=== PATIENT | male | born 1960 | race Caucasian/White ===

== ENCOUNTER → 2021-01-04 | Outpatient (REF) | payer MEDICARE ==
[2021-01-08 17:10] LABS: AMPHETAMINE, URINE GC/MS >5000 ng/mL (Cutoff=500); CREATININE, URINE 223.7 mg/dL (20.0-300.0); METHAMPHETAMINE, URINE Negative (Cutoff=500); OPIATES, URINE Negative ng/mL (Cutoff=300); OXYCODONE URINE Positive (.); OXYCODONE, URINE CONFIRM 4266 ng/mL (Cutoff=100); OXYCODONE/OXYMORPH, URINE Positive (Cutoff=100); OXYMORPHONE, URINE Positive (.); OXYMORPHONE, URINE CONFIRM 3753 ng/mL (Cutoff=100)
== END ==
LOC: M SFHCPLAZ 13:16
PROVIDERS: ATTEND Family Medicine
DX: Z51.81 Encounter for therapeutic drug level monitoring (principal); Z79.899 Other long term (current) drug therapy
CPT/HCPCS: 80307; G0463

== ENCOUNTER → 2021-02-07 | Outpatient (CLI) | payer MEDICARE ==
[2021-02-07 15:54] LABS: BLOOD UREA NITROGEN 20 MG/DL (7-18); CALCIUM LEVEL 9.3 MG/DL (8.8-10.2); CARBON DIOXIDE LEVEL 29 MEQ/L (21-32); CHLORIDE LEVEL 106 MEQ/L (98-107); CREATININE FOR GFR 1.03 MG/DL (0.70-1.30); GLOMERULAR FILTRATION RATE > 60.0 (>49); GLUCOSE, FASTING 103 MG/DL (70-100); POTASSIUM SERUM 4.5 MEQ/L (3.5-5.1); SODIUM LEVEL 141 MEQ/L (136-145)
[2021-02-07 16:08] LABS: HEMOGLOBIN A1c 6.4 %
== END ==
LOC: M PLALAB 11:47
PROVIDERS: ATTEND Family Medicine
DX: I10 Essential (primary) hypertension (principal); Z13.1 Encounter for screening for diabetes mellitus; Z79.899 Other long term (current) drug therapy

== ENCOUNTER → 2021-07-28 | Outpatient (REF) | payer MEDICARE | LOC: M SFHCPLAZ 11:57 | PROVIDERS: ATTEND Family Medicine | DX: N40.0 Benign prostatic hyperplasia without lower urinary tract symptoms (principal) ==

== ENCOUNTER → 2021-07-28 | Outpatient (REF) | payer MEDICARE ==
[2021-07-28 12:19] LABS: BASO # 0.1 10^3/uL (0.0-0.2); BASO % 0.8 % (0.0-1.0); EOS # 0.1 10^3/uL (0.0-0.5); EOS % 1.1 % (0.0-3.0); HEMATOCRIT 43.1 % (42.0-52.0); HEMOGLOBIN 14.7 g/dl (13.5-17.5); LYMPH # 2.8 10^3/uL (1.5-5.0); LYMPH % 34.6 % (24.0-44.0); MEAN CORPUSCULAR HEMOGLOBIN 29.9 pg (27.0-33.0); MEAN CORPUSCULAR HGB CONC 34.1 g/dl (32.0-36.5); MEAN CORPUSCULAR VOLUME 87.8 fl (80.0-96.0); MONO # 0.4 10^3/uL (0.0-0.8); MONO % 5.5 % (2.0-8.0); NEUTROPHILS # 4.6 10^3/uL (1.5-8.5); NEUTROPHILS % 57.6 % (36.0-66.0); PLATELET COUNT, AUTOMATED 240 10^3/uL (150-450); RED BLOOD COUNT 4.91 10^6/uL (4.30-6.10)
[2021-07-28 12:38] LABS: APPEARANCE, URINE CLEAR (CLEAR); BACTERIA, URINE AUTO NEGATIVE (NEGATIVE); BILIRUBIN, URINE AUTO NEGATIVE (NEGATIVE); BLOOD, URINE BLOOD NEGATIVE (NEGATIVE); COLOR, URINE YELLOW (YELLOW); GLUCOSE, URINE (UA) AUTO 1+ mg/dL (NEGATIVE); KETONE, URINE AUTO NEGATIVE (NEGATIVE); LEUKOCYTE ESTERASE, URINE AUTO NEGATIVE (NEGATIVE); MUCUS, URINE SMALL (NEGATIVE); NITRITE, URINE AUTO NEGATIVE (NEGATIVE); PROTEIN, URINE AUTO NEGATIVE (NEGATIVE); RBC, URINE AUTO 1 /HPF (0-3); SQUAMOUS EPITHELIAL CELL UR AU 0 /HPF (0-6); UROBILINOGEN, URINE AUTO 0.2 mg/dL (0.0-2.0); WBC, URINE AUTO 1 /HPF (0-3)
[2021-07-28 12:40] LABS: DRVV SCREEN 37.7 SEC
[2021-07-28 12:53] LABS: ERYTHROCYTE SEDIMENTATION RATE 12 mm/hr (0-20)
[2021-07-28 12:56] LABS: C REACTIVE PROTEIN QUANTITATIV 0.5 MG/DL (0.00-0.30); MAGNESIUM LEVEL 2.2 MG/DL (1.8-2.4); PHOSPHORUS LEVEL 3.8 MG/DL (2.5-4.9); THYROID STIMULATING HORMONE 2.72 uIU/ML (0.358-3.740)
[2021-07-28 12:58] LABS: TOTAL 25(OH) VITAMIN D 25.1 NG/ML (30.0-100.0)
== END ==
LOC: M SFHCRHEU 10:30
PROVIDERS: ATTEND Internal Medicine
DX: R76.8 Other specified abnormal immunological findings in serum (principal); M79.10 Myalgia, unspecified site; M25.40 Effusion, unspecified joint; Z79.899 Other long term (current) drug therapy

== ENCOUNTER → 2021-11-18 | Outpatient (CLI) | payer MEDICARE | LOC: M WUC 08:57 | PROVIDERS: ATTEND Internal Medicine | DX: M19.031 Primary osteoarthritis, right wrist (principal); M19.032 Primary osteoarthritis, left wrist; M17.11 Unilateral primary osteoarthritis, right knee; M17.12 Unilateral primary osteoarthritis, left knee; M19.041 Primary osteoarthritis, right hand; M19.042 Primary osteoarthritis, left hand; M19.071 Primary osteoarthritis, right ankle and foot; M19.072 Primary osteoarthritis, left ankle and foot; M25.40 Effusion, unspecified joint ==

== ENCOUNTER → 2022-02-09 | Outpatient (CLI) | payer MEDICARE | LOC: M PLARAD 08:56 | PROVIDERS: ATTEND Internal Medicine | DX: M79.89 Other specified soft tissue disorders (principal) ==

== ENCOUNTER → 2022-03-16 | Outpatient (CLI) | payer MEDICARE | LOC: M SOG 08:35 | PROVIDERS: ATTEND Orthopaedic Surgery Adult Reconstructive Orthopaedic Surgery | DX: M85.862 Other specified disorders of bone density and structure, left lower leg (principal); M25.761 Osteophyte, right knee ==

== ENCOUNTER → 2022-05-08 | Outpatient (CLI) | payer MEDICARE ==
[~2022-05-08] MED LIST: AMPHET/DEXTR PO; B-12100010 PO; IBUP80TA PO; LISI10TA22 PO; OXYC10TA12 PO; PRAV10TA3 PO; PRAV10TA4 PO; VITA1CAP25 PO
== END ==
LOC: M LABSMTC 10:22
PROVIDERS: ATTEND Anesthesiology
DX: Z01.812 Encounter for preprocedural laboratory examination (principal); Z11.52 Encounter for screening for COVID-19

== ENCOUNTER 2022-05-10 06:06 | Day surgery (SDC) | payer MEDICARE ==
[~2022-05-10] VITALS: Ht 185.4 cm; Wt 118.4 kg
[~2022-05-10 06:06] MED LIST changes: +ceFAZolin SOD 2 GM in IV 1 EA IV ONE
[2022-05-10] MEDS ORDERED: LR 1,000 ML IV SCH ×2 (06:50→09:45)
[2022-05-10] MEDS ORDERED: ONDANSETRON 4MG 2ML VIAL As Ordered ONE (06:51)
[2022-05-10] MEDS ORDERED: LIDOCAINE 2% 100MG/5ML SDV (FOR ANES.) As Ordered ONE (06:51)
[2022-05-10] MEDS ORDERED: propofoL 200 MG/20 ML VIAL As Ordered ONE (06:51)
[2022-05-10] MEDS ORDERED: fentaNYL 100 MCG/2 ML INJECTION As Ordered ONE (06:58)
[2022-05-10] MEDS ORDERED: MIDAZOLAM INJ 2MG/2ML VIAL As Ordered ONE (06:58)
[2022-05-10] MEDS ORDERED: LIDOCAINE 1% MDV 20ML VIAL As Ordered ONE (07:10)
[2022-05-10] MEDS ORDERED: BUPIVACAINE HCL 0.5% 30ML VIAL As Ordered ONE (07:10)
[2022-05-10] MEDS ORDERED: ACETAMINOPHEN 1000MG 100ML IV BAG As Ordered ONE (07:46)
[2022-05-10] MEDS ORDERED: KETOROLAC 60MG 2ML VIAL As Ordered ONE (09:17)
[2022-05-10] MEDS ORDERED: OXYC1TAB23 PO (09:39)
[2022-05-10] MEDS ORDERED: oxyCODONE 5MG TAB PO PRN (09:45)
[2022-05-10] MEDS ORDERED: fentaNYL 100 MCG/2 ML INJECTION IV PRN (09:45)
[2022-05-10] MEDS ORDERED: MORPHINE 2 MG/ML 1ML VIAL IV PRN (09:45)
[2022-05-10] MEDS ORDERED: ONDANSETRON 4MG 2ML VIAL IV PRN (09:45)
[2022-05-10 11:20] VITALS: BP 130/60
== END 2022-05-10 11:23 | disposition home or self-care (01) ==
LOC: M SDC 06:06
PROVIDERS: ATTEND Podiatrist Foot & Ankle Surgery
DX: M21.612 Bunion of left foot (principal); M20.42 Other hammer toe(s) (acquired), left foot; I10 Essential (primary) hypertension; E78.5 Hyperlipidemia, unspecified; Z87.891 Personal history of nicotine dependence; F43.10 Post-traumatic stress disorder, unspecified; N40.0 Benign prostatic hyperplasia without lower urinary tract symptoms; Z79.899 Other long term (current) drug therapy
CPT/HCPCS: 28285; 28299; 28308; 76000; 88300; C1713; J1100; J2405

== ENCOUNTER → 2022-07-25 | Outpatient (CLI) | payer MEDICARE ==
[~2022-07-25] MED LIST changes: +OXYC1TAB23 PO; -ceFAZolin SOD 2 GM in IV 1 EA IV ONE
== END ==
LOC: M RAD 10:22
PROVIDERS: ATTEND Physician Assistant
DX: Z87.891 Personal history of nicotine dependence (principal)

== ENCOUNTER → 2022-10-05 | Outpatient (CLI) | payer MEDICARE | LOC: M SOG 09:35 | PROVIDERS: ATTEND Orthopaedic Surgery | DX: M17.0 Bilateral primary osteoarthritis of knee (principal) ==

== ENCOUNTER → 2023-01-02 | Outpatient (CLI) | payer MEDICARE ==
[2023-01-02 11:01] LABS: BASO # 0.1 10^3/uL (0.0-0.2); BASO % 0.9 % (0.0-1.0); EOS # 0.1 10^3/uL (0.0-0.5); EOS % 1.6 % (0.0-3.0); HEMATOCRIT 43.7 % (42.0-52.0); HEMOGLOBIN 14.5 g/dl (13.5-17.5); LYMPH # 2.8 10^3/uL (1.5-5.0); LYMPH % 36.7 % (24.0-44.0); MEAN CORPUSCULAR HEMOGLOBIN 30.5 pg (27.0-33.0); MEAN CORPUSCULAR HGB CONC 33.2 g/dl (32.0-36.5); MEAN CORPUSCULAR VOLUME 91.8 fl (80.0-96.0); MONO # 0.5 10^3/uL (0.0-0.8); MONO % 5.9 % (2.0-8.0); NEUTROPHILS # 4.1 10^3/uL (1.5-8.5); NEUTROPHILS % 54.1 % (36.0-66.0); PLATELET COUNT, AUTOMATED 239 10^3/uL (150-450); RED BLOOD COUNT 4.76 10^6/uL (4.30-6.10); WHITE BLOOD COUNT 7.6 10^3/uL (4.0-10.0)
[2023-01-02 11:30] LABS: HEMOGLOBIN A1c 5.8 % (4.0-6.0)
[2023-01-02 11:32] LABS: ALBUMIN 3.9 G/DL (3.2-5.2); ALKALINE PHOSPHATASE 110 U/L (46-116); ALT/SGPT 17 U/L (7.0-40); AST/SGOT 9 U/L (<34); BILIRUBIN,TOTAL 0.8 MG/DL (0.3-1.2); BLOOD UREA NITROGEN 16 MG/DL (9-23); CALCIUM LEVEL 9.3 MG/DL (8.3-10.6); CARBON DIOXIDE LEVEL 31 MMOL/L (20-31); CHLORIDE LEVEL 102 MMOL/L (98-107); CHOLESTEROL LEVEL 261 MG/DL (<200); CHOLESTEROL RISK RATIO 5.76 (<5); CREATININE FOR GFR 1.14 MG/DL (0.70-1.30); GLOMERULAR FILTRATION RATE > 60.0 (>49); GLUCOSE, FASTING 109 MG/DL (74-106); HDL CHOLESTEROL 45.3 MG/DL (>40); LDL CHOLESTEROL 187.1 MG/DL (<100); NON-HDL-C 215.7 MG/DL; POTASSIUM SERUM 4.2 MMOL/L (3.5-5.1); SODIUM LEVEL 140 MMOL/L (136-145); TOTAL PROTEIN 6.8 G/DL (5.7-8.2); TRIGLYCERIDES LEVEL 143 MG/DL (<150); VITAMIN B12 LEVEL 650 PG/ML (211-911)
== END ==
LOC: M WUC 08:15
PROVIDERS: ATTEND Physician Assistant
DX: I10 Essential (primary) hypertension (principal); E53.8 Deficiency of other specified B group vitamins; E78.2 Mixed hyperlipidemia; R73.03 Prediabetes; N40.0 Benign prostatic hyperplasia without lower urinary tract symptoms; Z13.21 Encounter for screening for nutritional disorder
CPT/HCPCS: 36415; 80053; 80061; 82306; 82607; 83036; 85025; G0103

== ENCOUNTER → 2023-02-07 | Outpatient (CLI) | payer MEDICARE | LOC: M SOG 07:55 | PROVIDERS: ATTEND Orthopaedic Surgery | DX: M25.561 Pain in right knee (principal); M25.562 Pain in left knee ==

== ENCOUNTER → 2023-05-02 | Outpatient (CLI) | payer MEDICARE ==
[2023-05-02 11:49] LABS: BASO # 0.1 10^3/uL (0.0-0.2); BASO % 0.7 % (0.0-1.0); EOS # 0.1 10^3/uL (0.0-0.5); EOS % 1.4 % (0.0-3.0); HEMATOCRIT 44.9 % (42.0-52.0); HEMOGLOBIN 15.3 g/dl (13.5-17.5); LYMPH # 2.8 10^3/uL (1.5-5.0); LYMPH % 32.9 % (24.0-44.0); MEAN CORPUSCULAR HEMOGLOBIN 30.5 pg (27.0-33.0); MEAN CORPUSCULAR HGB CONC 34.1 g/dl (32.0-36.5); MEAN CORPUSCULAR VOLUME 89.6 fl (80.0-96.0); MONO # 0.4 10^3/uL (0.0-0.8); MONO % 4.7 % (2.0-8.0); NEUTROPHILS # 5.1 10^3/uL (1.5-8.5); NEUTROPHILS % 59.5 % (36.0-66.0); PLATELET COUNT, AUTOMATED 230 10^3/uL (150-450); RED BLOOD COUNT 5.01 10^6/uL (4.30-6.10); WHITE BLOOD COUNT 8.5 10^3/uL (4.0-10.0)
[2023-05-02 12:32] LABS: ALBUMIN 3.9 G/DL (3.2-5.2); ALKALINE PHOSPHATASE 102 U/L (46-116); ALT/SGPT 16 U/L (7.0-40); AST/SGOT < 8 U/L (<34); BILIRUBIN,TOTAL 0.6 MG/DL (0.3-1.2); BLOOD UREA NITROGEN 16 MG/DL (9-23); CALCIUM LEVEL 9.2 MG/DL (8.3-10.6); CARBON DIOXIDE LEVEL 28 MMOL/L (20-31); CHLORIDE LEVEL 102 MMOL/L (98-107); CREATININE FOR GFR 1.07 MG/DL (0.70-1.30); GLOMERULAR FILTRATION RATE > 60.0 (>49); GLUCOSE, FASTING 143 MG/DL (74-106); POTASSIUM SERUM 4.4 MMOL/L (3.5-5.1); PSA SCREENING 5.49 NG/ML (< 4.00); SODIUM LEVEL 139 MMOL/L (136-145); TOTAL PROTEIN 6.5 G/DL (5.7-8.2)
== END ==
LOC: M WUC 08:27
PROVIDERS: ATTEND Physician Assistant
DX: N40.0 Benign prostatic hyperplasia without lower urinary tract symptoms (principal); I10 Essential (primary) hypertension; R73.03 Prediabetes; Z12.5 Encounter for screening for malignant neoplasm of prostate
CPT/HCPCS: 36415; 80053; 83036; 85025; G0103

== ENCOUNTER → 2023-05-29 | Outpatient (CLI) | payer MEDICARE | LOC: M SOG 07:52 | PROVIDERS: ATTEND Orthopaedic Surgery | DX: M17.0 Bilateral primary osteoarthritis of knee (principal) ==

== ENCOUNTER → 2023-07-30 | Outpatient (CLI) | payer MEDICARE | LOC: M RAD 10:55 | PROVIDERS: ATTEND Physician Assistant | DX: Z12.2 Encounter for screening for malignant neoplasm of respiratory organs (principal); F17.211 Nicotine dependence, cigarettes, in remission ==

== ENCOUNTER → 2023-09-25 | Outpatient (CLI) | payer MEDICARE ==
[2023-09-25 12:45] LABS: HEMOGLOBIN A1c 5.5 % (4.0-6.0)
[2023-09-25 12:46] LABS: PSA SCREENING 6.61 NG/ML (< 4.00)
[2023-09-25 12:49] LABS: ALBUMIN 4.1 G/DL (3.2-5.2); ALKALINE PHOSPHATASE 88 U/L (46-116); ALT/SGPT 20 U/L (7.0-40); AST/SGOT < 8 U/L (<34); BILIRUBIN,TOTAL 0.6 MG/DL (0.3-1.2); BLOOD UREA NITROGEN 24 MG/DL (9-23); CALCIUM LEVEL 9.4 MG/DL (8.3-10.6); CARBON DIOXIDE LEVEL 26 MMOL/L (20-31); CHLORIDE LEVEL 106 MMOL/L (98-107); CREATININE FOR GFR 1.13 MG/DL (0.70-1.30); GLOMERULAR FILTRATION RATE > 60.0 (>49); GLUCOSE, FASTING 124 MG/DL (74-106); POTASSIUM SERUM 4.3 MMOL/L (3.5-5.1); SODIUM LEVEL 140 MMOL/L (136-145); TOTAL PROTEIN 6.7 G/DL (5.7-8.2)
[2023-09-25 12:50] LABS: VITAMIN B12 LEVEL 1305 PG/ML (211-911)
== END ==
LOC: M WUC 10:07
PROVIDERS: ATTEND Physician Assistant
DX: N40.0 Benign prostatic hyperplasia without lower urinary tract symptoms (principal); E11.9 Type 2 diabetes mellitus without complications; E53.8 Deficiency of other specified B group vitamins; Z12.5 Encounter for screening for malignant neoplasm of prostate
CPT/HCPCS: 36415; 80053; 82607; 83036; G0103

== ENCOUNTER → 2024-02-28 | Outpatient (CLI) | payer MEDICARE | LOC: M SOG 07:24 | PROVIDERS: ATTEND Orthopaedic Surgery | DX: M25.532 Pain in left wrist (principal); M25.561 Pain in right knee; M25.562 Pain in left knee; Z53.9 Procedure and treatment not carried out, unspecified reason ==

== ENCOUNTER → 2024-04-07 | Outpatient (CLI) | payer MEDICARE | LOC: M SOG 07:56 | PROVIDERS: ATTEND Orthopaedic Surgery | DX: M25.532 Pain in left wrist (principal); M25.561 Pain in right knee; M25.562 Pain in left knee; Z53.9 Procedure and treatment not carried out, unspecified reason ==

== ENCOUNTER → 2024-04-16 | Outpatient (CLI) | payer MEDICARE | LOC: M SOG 07:58 | PROVIDERS: ATTEND Orthopaedic Surgery | DX: Z53.9 Procedure and treatment not carried out, unspecified reason (principal) ==

== ENCOUNTER → 2024-07-22 | Outpatient (CLI) | payer MEDICARE | LOC: M SOG 07:47 | PROVIDERS: ATTEND Orthopaedic Surgery | DX: Z53.21 Procedure and treatment not carried out due to patient leaving prior to being seen by health care provider (principal) ==

== ENCOUNTER → 2024-08-19 | Outpatient (CLI) | payer MEDICARE | LOC: M SOG 07:52 | PROVIDERS: ATTEND Orthopaedic Surgery | DX: M17.0 Bilateral primary osteoarthritis of knee (principal); M19.032 Primary osteoarthritis, left wrist; G56.02 Carpal tunnel syndrome, left upper limb ==

== ENCOUNTER → 2024-11-14 | Outpatient (CLI) | payer MEDICARE ==
[~2024-11-14] MED LIST changes: +PRAV10TA PO; -PRAV10TA3 PO; -PRAV10TA4 PO; +PRAV10TA43 PO; +PROHANCE 279.3MG/ML 15ML VIAL ONE; +PROHANCE 279.3MG/ML 5ML VIAL ONE
== END ==
LOC: M PLAIMG 10:37
PROVIDERS: ATTEND Nurse Practitioner Family
DX: N40.0 Benign prostatic hyperplasia without lower urinary tract symptoms (principal)
CPT/HCPCS: 72197; A9576

== ENCOUNTER → 2024-12-09 | Outpatient (REF) | payer MEDICARE ==
[~2024-12-09] MED LIST changes: -PROHANCE 279.3MG/ML 15ML VIAL ONE; -PROHANCE 279.3MG/ML 5ML VIAL ONE
[2024-12-09 13:19] LABS: CALCIUM LEVEL 9.1 MG/DL (8.3-10.6); CARBON DIOXIDE LEVEL 27.0 MMOL/L (20-31); CHLORIDE LEVEL 105.0 MMOL/L (98-107); CREATININE FOR GFR 1.01 MG/DL (0.70-1.30); GLOMERULAR FILTRATION RATE 83.1 (>49); POTASSIUM SERUM 4.5 MMOL/L (3.5-5.1); SODIUM LEVEL 143.0 MMOL/L (136-145)
== END ==
LOC: M LABWUC 12:14
PROVIDERS: ATTEND Nurse Practitioner Family
DX: R93.89 Abnormal findings on diagnostic imaging of other specified body structures (principal)

== ENCOUNTER → 2024-12-11 | Outpatient (CLI) | payer MEDICARE ==
[~2024-12-11] MED LIST changes: +ISOVUE-370 76% 100 ML VIAL ONE
== END ==
LOC: M PLAIMG 12:13
PROVIDERS: ATTEND Nurse Practitioner Family
DX: R93.89 Abnormal findings on diagnostic imaging of other specified body structures (principal); R19.00 Intra-abdominal and pelvic swelling, mass and lump, unspecified site
CPT/HCPCS: 72193; Q9967

== ENCOUNTER → 2025-01-19 | Outpatient (CLI) | payer MEDICARE ==
[~2025-01-19] MED LIST changes: -ISOVUE-370 76% 100 ML VIAL ONE
== END ==
LOC: M PLARAD 10:19
PROVIDERS: ATTEND Nurse Practitioner Family
DX: M79.89 Other specified soft tissue disorders (principal); D48.19 Other specified neoplasm of uncertain behavior of connective and other soft tissue
CPT/HCPCS: 78815; A9552